=== PATIENT | female | born 1975 | race Caucasian/White ===

== ENCOUNTER 2017-12-28 15:56 | Emergency (ER) | payer BC ==
[~2017-12-28] VITALS: Ht 152.4 cm; Wt 59.0 kg
[2017-12-28] MEDS ORDERED: ONDANSETRON 4 MG/2 ML VIAL IM ONE (16:45)
[2017-12-28] MEDS ORDERED: HYDROMORPHONE 1 MG/1 ML DISP.SYRIN IM ONE (16:45)
[2017-12-28] MEDS ORDERED: OXYCODONE/APAP 5-325 MG TABLET PO ONE (18:00)
[2017-12-28] MEDS ORDERED: OXYCODONE/APAP 5-325 MG TABLET ONE (18:06)
--- NOTE | 2017-12-28 18:15 | NUR ---
mse completed, meds administered, cd copy of xrays given, pt also had lle posterior fivberglass splint placed. pt then was crutched trained, crutches dispensed. pt demonstarted proper crutch use. aci/rx x 3 given. pt was then transported via w/c to private auto. pt took all belongings.
[2017-12-28 18:20] VITALS: BP 122/95
== END 2017-12-28 18:21 | disposition home or self-care (01) ==
LOC: ER 16:01
DX: S52.502A Unspecified fracture of the lower end of left radius, initial encounter for closed fracture (principal); S52.602A Unspecified fracture of lower end of left ulna, initial encounter for closed fracture; I10 Essential (primary) hypertension; Z88.1 Allergy status to other antibiotic agents; X50.1XXA Overexertion from prolonged static or awkward postures, initial encounter; Y93.89 Activity, other specified; Y92.89 Other specified places as the place of occurrence of the external cause; Y99.8 Other external cause status
CPT/HCPCS: 29515; 73610; 96372 ×2; 99284; A4663; J1170; J2405